=== PATIENT | female | born 1955 | race Caucasian/White ===

== ENCOUNTER 2016-07-24 20:46 | Emergency (ER) | payer OTHER ==
[~2016-07-24] VITALS: Ht 152.4 cm; Wt 66.2 kg
[2016-07-24 20:52] VITALS: BP 159/78
[2016-07-24 21:28] LABS: BASOPHILS # (AUTO) 0.1 /CMM (0.0-0.2); DIFF TOTAL % 100 %; EOSINOPHILS # (AUTO) 0.1 /CMM (0.0-0.7); EOSINOPHILS % (AUTO) 0.7 % (0.0-6.0); HEMATOCRIT 39 % (33-45); LYMPHOCYTES # (AUTO) 1.5 /CMM (0.8-4.8); LYMPHOCYTES % (AUTO) 20.1 % (20.0-44.0); MEAN CORPUSCULAR HEMOGLOBIN 27 PG (26.0-33.0); MEAN CORPUSCULAR HGB CONC 33 g/dl (31.0-36.0); MEAN CORPUSCULAR VOLUME 79 fL (82-100); MONOCYTES # (AUTO) 0.5 /CMM (0.1-1.30); MONOCYTES % (AUTO) 7.2 % (2.0-12.0); NEUTROPHILS # (AUTO) 5.3 /CMM (1.8-8.9); PLATELET COUNT (AUTO) 234 /CMM (150-450); RED BLOOD CELL COUNT(AUTO) 4.91 MIL/uL (4.0-5.2); WHITE BLOOD COUNT (AUTO) 7.5 K/uL (4.3-11.0)
[2016-07-24] MEDS ORDERED: MORPHINE SULFATE INJ 2 MG/ML DISP.SYRIN IV ONE (21:30)
[2016-07-24] MEDS ORDERED: ONDANSETRON HCL/PF 4 MG/2 ML VIAL IV ONE (21:30)
[2016-07-24] MEDS ORDERED: KETOROLAC TROMETHAMINE INJ 30 MG/ML VIAL ONE (21:36)
[2016-07-24] MEDS ORDERED: IBUPROFEN 600 MG TABLET PO ONE (21:41)
[2016-07-24 21:42] LABS: C-REACTIVE PROTEIN 1.2 mg/dL (0.0-0.9)
[2016-07-24] MEDS: IBUPROFEN 600 MG TABLET PO ONE (21:46)
[2016-07-24 22:03] LABS: ERYTHROCYTE SEDIMENTATION RATE 43 MM/HR (0-30)
[2016-07-24] MEDS ORDERED: HYDROCODONE/APAP 5/325MG 1 EACH TABLET ONE (22:34)
[2016-07-24] MEDS: HYDROCODONE/APAP 5/325MG 1 EACH TABLET PO ONE (22:40)
== END 2016-07-24 23:23 | disposition home or self-care (01) ==
LOC: ER 20:46
DX: M10.9 Gout, unspecified (principal)
CPT/HCPCS: 36415; 73564-TC; 84550-TC; 85025-TC; 85652-TC; 86140-TC; A4606; J1885; Z7610

== ENCOUNTER 2024-07-29 12:23 | Inpatient (IN) | payer OTHER ==
[~2024-07-29] VITALS: Ht 157.5 cm; Wt 64.4 kg
[2024-07-29] MEDS ORDERED: PIPERACI/TAZO 3.375GM/D5W 50ML PB IV ONE (12:59)
[2024-07-29] MEDS ORDERED: MORPHINE SULFATE INJ 2 MG/ML DISP.SYRIN ONE (12:59)
[2024-07-29] MEDS: MORPHINE SULFATE INJ 2 MG/ML DISP.SYRIN IV ONE (13:03)
[2024-07-29] MEDS: PIPERACILLIN /TAZOBACTAM 3.375 G in IV D5W 50 ML IV ONE (13:03)
[2024-07-29 13:24] LABS: BASOPHILS % (AUTO) 0.5 % (0.0-2.0); EOSINOPHILS # (AUTO) 0.1 K/uL (0.0-0.7); EOSINOPHILS % (AUTO) 1.1 % (0.0-6.0); HEMATOCRIT 37 % (33-45); HEMOGLOBIN 12.3 g/dL (11.5-14.8); LYMPHOCYTES # (AUTO) 1.6 K/uL (0.8-4.8); LYMPHOCYTES % (AUTO) 29.8 % (20.0-44.0); MEAN CORPUSCULAR HEMOGLOBIN 28 PG (26.0-33.0); MEAN CORPUSCULAR HGB CONC 34 g/dl (31.0-36.0); MEAN CORPUSCULAR VOLUME 82 fL (82-100); MONOCYTES # (AUTO) 0.4 K/uL (0.1-1.30); MONOCYTES % (AUTO) 7.3 % (2.0-12.0); NEUTROPHILS # (AUTO) 3.2 K/uL (1.8-8.9); NEUTROPHILS % (AUTO) 61.3 % (43.0-81.0); PLATELET COUNT (AUTO) 182 K/uL (150-450); RED BLOOD CELL COUNT(AUTO) 4.47 MIL/uL (4.0-5.2); RED CELL DISTRIBUTION WIDTH 14.4 % (11.5-15.0); WHITE BLOOD COUNT (AUTO) 5.3 K/uL (4.3-11.0)
[2024-07-29 13:30] LABS: CALCIUM, SERUM 8.9 mg/dL (8.5-10.1); CREATININE 0.8 mg/dL (0.6-1.3); POTASSIUM 4.2 mmol/L (3.5-5.1)
[2024-07-29 13:40] LABS: ALBUMIN 3.5 g/dL (3.4-5.0); BILIRUBIN,DIRECT 0.1 mg/dL (0.0-0.2); BILIRUBIN,TOTAL 0.4 mg/dL (0.2-1.0); INR 1.06 (0.91-1.10); PARTIAL THROMBOPLASTIN TIME 26.7 SEC (24.3-34.3); PROTHROMBIN TIME 11.2 SECS (9.2-11.1); TOTAL PROTEIN, SERUM 7.9 g/dL (6.4-8.2)
[2024-07-29 16:00] VITALS: BP 135/43; TEMP 98.1; O2SAT 99
[2024-07-29] MEDS ORDERED: MORPHINE SULFATE INJ 2 MG/ML DISP.SYRIN IV PRN (17:00)
[2024-07-29] MEDS ORDERED: IV NS 0.9% 1,000 ML IV PRN (17:00)
[2024-07-29] MEDS ORDERED: Z GUARD REMEDY 4 OZ OINT TP PRN (17:00)
[2024-07-29] MEDS ORDERED: ONDANSETRON HCL/PF 4 MG/2 ML VIAL IVP PRN (17:00)
[2024-07-29] MEDS ORDERED: OLME40TA18 PO (18:08)
[2024-07-29] MEDS ORDERED: CLON0.1T PO (18:08)
[2024-07-29] MEDS ORDERED: AMLO-213 PO (18:08)
[2024-07-29 19:00] VITALS: BP 135/43; TEMP 98.1; O2SAT 99
[2024-07-29] MEDS ORDERED: ZOSYN IVPB 3.375 G in IV D5W 50ml IV SCH (19:00)
[2024-07-29 20:00] VITALS: BP 132/50; TEMP 98.1; O2SAT 96
[2024-07-30] MEDS ORDERED: PANTOPRAZOLE 40 MG VIAL IV SCH (09:00)
== END 2024-07-29 20:50 | disposition left against medical advice (07) ==
LOC: ER 12:27 → MED 18:26
DX: K80.00 Calculus of gallbladder with acute cholecystitis without obstruction (principal); K76.0 Fatty (change of) liver, not elsewhere classified; F17.210 Nicotine dependence, cigarettes, uncomplicated; I10 Essential (primary) hypertension
CPT/HCPCS: 36415; 71045-TC; 76705-TC; 80048-TC; 80076-TC; 83690-TC; 85025-TC; 85730-TC; 86850-TC; G0378; J2270; J2543; J7060

== ENCOUNTER 2025-03-11 17:21 | Emergency (ER) | payer MEDICAID, OTHER ==
[~2025-03-11] VITALS: Ht 157.5 cm; Wt 59.0 kg
[~2025-03-11 17:21] MED LIST: AMLO-213 PO; CLON0.1T PO; OLME40TA18 PO
[2025-03-11] MEDS ORDERED: PANTOPRAZOLE 40 MG VIAL ONE (17:41)
[2025-03-11] MEDS ORDERED: ONDANSETRON HCL/PF 4 MG/2 ML VIAL ONE (17:41)
[2025-03-11] MEDS ORDERED: KETOROLAC TROMETHAMINE 15 MG/ML VIAL ONE (17:41)
[2025-03-11] MEDS ORDERED: MORPHINE SULFATE INJ 4 MG/ML DISP.SYRIN ONE (17:42)
[2025-03-11 17:45] VITALS: TEMP 98.1
[2025-03-11 17:48] LABS: PLATELET COUNT (AUTO) 266 K/uL (150-450); RED BLOOD CELL COUNT(AUTO) 4.04 MIL/uL (4.0-5.2); RED CELL DISTRIBUTION WIDTH 13.4 % (11.5-15.0); WHITE BLOOD COUNT (AUTO) 6.6 K/uL (4.3-11.0)
[2025-03-11 18:02] LABS: ASPARTATE AMINOTRANSFERASE 25 U/L (15-37); CALCIUM, SERUM 9.0 mg/dL (8.5-10.1); CREATININE 1.4 mg/dL (0.6-1.3); SODIUM SERUM 134 mmol/L (136-145); TOTAL PROTEIN, SERUM 7.8 g/dL (6.4-8.2); UREA NITROGEN, BLOOD 31 mg/dL (7-18)
[2025-03-11] MEDS: IV NS 0.9% 1,000 ML BAG IV ONE (18:27)
[2025-03-11] MEDS: KETOROLAC TROMETHAMINE 15 MG/ML VIAL IV ONE (18:29)
[2025-03-11] MEDS: PANTOPRAZOLE 40 MG VIAL IV ONE (18:29)
[2025-03-11] MEDS: MORPHINE SULFATE INJ 2 MG/ML DISP.SYRIN IV ONE (18:29)
[2025-03-11] MEDS: ONDANSETRON HCL/PF 4 MG/2 ML VIAL IVP ONE (18:30)
[2025-03-11 19:19] LABS: APPEARANCE,URINE CLEAR (CLEAR); BLOOD, URINE TRACE-INTA Ery/uL (NEGATIVE); LEUKOCYTE ESTERASE ,URINE NEGATIVE (NEGATIVE); NITRITE, URINE NEGATIVE (NEGATIVE); UGLUCOSE NEGATIVE (NEGATIVE)
[2025-03-11 19:28] LABS: ADD URINE CULTURE NO; HYALINE CASTS, URINE Rare /LPF (None Seen); SQUAMOUS EPITHELIAL CELL,UR 0-2 /HPF (None Seen)
[2025-03-11] MEDS ORDERED: SULI200T4 PO (20:29)
[2025-03-11] MEDS ORDERED: ONDA4TAB11 PO (20:29)
[2025-03-11] MEDS ORDERED: HYDR-4209 PO (20:29)
[2025-03-11 20:52] VITALS: BP 121/42; O2SAT 97
== END 2025-03-11 20:52 | disposition home or self-care (01) ==
LOC: ER 17:24
DX: K80.50 Calculus of bile duct without cholangitis or cholecystitis without obstruction (principal); R10.11 Right upper quadrant pain; R11.0 Nausea; I10 Essential (primary) hypertension; Z90.49 Acquired absence of other specified parts of digestive tract; Z86.79 Personal history of other diseases of the circulatory system
CPT/HCPCS: 99285; 96374; 76705; 96375; 96361; 93005; 85025; 80048; 83605; 83690; 80076; 81001; 36415; 84484; J1885; J2405; J7030; J2470; J2270